=== PATIENT | female | born 1960 | race African-American/Black ===

== ENCOUNTER 2017-06-18 19:49 | Emergency (ER) | payer BC ==
[~2017-06-18] VITALS: Ht 177.8 cm; Wt 95.3 kg
[2017-06-18 19:49] VITALS: BP 110/68
[2017-06-18] MEDS ORDERED: Norco 5mg/325mg tab PO ONE (20:15)
[2017-06-18 21:49] VITALS: BP 119/62
[2017-06-18] MEDS ORDERED: IBUPROFEN600 MG ORAL (22:10)
[2017-06-18] MEDS ORDERED: CYCLOBENZAPRINE10 MG ORAL (22:10)
[2017-06-18] MEDS ORDERED: NORCO 5-325 TA1 EACH ORAL (22:12)
[2017-06-18 23:00] VITALS: BP 126/71
--- NOTE | 2017-06-19 09:28 | Diagnostic Imaging Report ---
Clinical Indication:Wrist pain Technique: 3 views of the left wrist Comparison: None Findings: There is a comminuted impacted and posteriorly angulated fracture of the distal radius. It is minimally displaced. Osseous fragment projects posterior to the proximal carpal row on the lateral view. No definite associated ulnar styloid fracture, although the ulnar styloid is not well visualized. The fracture probably involves the articular surface. No definite carpal fracture demonstrated. Impression: Positive for distal radial fracture Findings suspicious for triquetral fracture Findings discussed by phone with Dr. Douglass in the emergency room at the time of interpretation
--- NOTE | 2017-06-19 09:30 | Diagnostic Imaging Report ---
Indication: Pain, trauma Technique: 2 views of the left hand Comparison: Exam is limited, due to suboptimal positioning on the AP view, lateral and oblique view Findings: There is a comminuted posteriorly angulated fracture the distal radius. Osseous fragment projects posterior to the proximal carpal row, concerning for triquetral fracture. There is a ring on the ring finger which could obscure pathology. No gross fractures are otherwise. Impression: Positive for distal radial fracture and possible triquetral fracture No definite hand fracture demonstrated Findings were discussed by phone with Dr. Douglass
--- NOTE | 2017-06-19 14:03 | Emergency Room Report ---
History of Present Illness General Chief Complaint: Upper Extremity Injury Source: Patient Present Illness HPI 56-year-old female presents ED complaining of left wrist pain status post fall. Brought in by EMS. Patient states she fell while roller blading. Landed on her left wrist. Per EMS there is deformity and swelling to left wrist. Pain is a 10 out of 10, throbbing, nonradiating. Denies any other injuries. No other aggravating relieving factors. Denies any other associated symptoms Allergies: Coded Allergies: No Known Allergies (Unverified , 06/18/17) Patient History Past Medical History: other - breast cancer Past Surgical History: none Pertinent Family History: none Social History: Denies: smoking, alcohol use, drug use Last Menstrual Period: none Now: No Immunizations: UTD Reviewed Nursing Documentation: PMH: Agreed, PSxH: Agreed Nursing Documentation-PMH Hx Cancer: Yes - breast Review of Systems All Other Systems: negative except mentioned in HPI Physical Exam Vital Signs Date Time Temp Pulse Resp B/P (MAP) Pulse Ox O2 Delivery O2 Flow Rate FiO2 06/18/17 19:38 97.0 68 18 110/68 99 Room Air 97.0 Sp02 EP Interpretation: reviewed, normal General Appearance: alert, GCS 15, non-toxic, mild distress Head: normocephalic Eyes: bilateral eye normal inspection, bilateral eye PERRL ENT: normal ENT inspection Neck: normal inspection Respiratory: normal inspection Cardiovascular #1: normal inspection Gastrointestinal: normal inspection Rectal: deferred Genitourinary: no CVA tenderness Musculoskeletal: swelling - L wrist Neurologic: alert, oriented x3, responsive, motor strength/tone normal, sensory intact, speech normal Psychiatric: normal inspection Skin: normal inspection Lymphatic: normal inspection Procedures Splinting Splinting : Consent: Verbal Hand-Made Type: plaster Splint: volar Pre-Proc Neuro Vasc Exam: normal Post-Proc Neuro Vasc Exam: normal Patient Tolerated: Well Complications: None Medical Decision Making Diagnostic Impression: Primary Impression: Wrist fracture Qualified Codes: S62.102A - Fracture of unspecified carpal bone, left wrist, initial encounter for closed fracture ER Course Hospital Course 56-year-old F presents to ED complaining of LUE pain s/p fall Differential diagnoses include: Fracture, dislocation, sprain, contusion Clinical course Patient placed on stretcher. After initial history and physical, I ordered pain medications and Xrays of L hand, wrist Xrays prelim read shows distal radius fx. some mild angulation Hematoma block applied using lidocaine. Patient placed in finger traps for traction. With some mild pressure and adequate alignment achieved and patient placed in volar splint Diagnosis - wrist fracture Stable and discharged to home with prescription for Motrin, [place]. apply ice, keep elevated. Followup with PMD/ortho. Return to ED if symptoms recur or worsen Other X-Ray Diagnostic Results Other X-Ray Diagnostic Results #1: X-Ray ordered: Left hand # of Views/Limited Vs Complete: 3 View Indication: Pain EP Interpretation: Yes Interpretation: no dislocation, no fractures Impression: No acute disease Electronically Signed by: Electronically signed by Ed Vaca MD Other X-Ray Diagnostic Results #2: X-Ray ordered: Left wrist # of Views/Limited Vs Complete: 3 View Indication: Pain EP Interpretation: Yes Interpretation: no dislocation Impression: Other - Distal radius fracture Electronically Signed by: Electronically signed by Ed Vaca MD Last Vital Signs Date Time Temp Pulse Resp B/P (MAP) Pulse Ox O2 Delivery O2 Flow Rate FiO2 06/18/17 23:00 97.8 71 18 126/71 99 Room Air 97.8 Status: improved Disposition: HOME, SELF-CARE Condition: Stable Scripts Hydrocodone Bit/Acetaminophen 5-325* (NORCO 5-325*) 1 Each Tablet 1 TAB ORAL Q6H Y for For Pain, #20 TAB 0 Refills Prov: ED VACA M.D. 06/18/17 Ibuprofen* (MOTRIN*) 600 Mg Tablet 600 MG ORAL Q8H Y for For Pain, #30 TAB 0 Refills Prov: ED VACA M.D. 06/18/17 Referrals: EMILIANO CLIFTON (PCP) Patient Instructions: Wrist Fracture, [id number] ED VACA M.D. Jun 19, 2017 14:03
== END 2017-06-18 23:00 | disposition home or self-care (01) ==
LOC: EDBD 19:49 → EMR 20:05
DX: S52.592A Other fractures of lower end of left radius, initial encounter for closed fracture (principal); W19.XXXA Unspecified fall, initial encounter; Y93.51 Activity, roller skating (inline) and skateboarding; Y92.9 Unspecified place or not applicable; Z85.3 Personal history of malignant neoplasm of breast
CPT/HCPCS: 99284